=== PATIENT | female | born 1965 | race Caucasian/White ===

== ENCOUNTER → 2017-07-04 | Outpatient (CLI) | payer OTHER ==
--- NOTE | 2017-07-04 14:25 | MAMMOGRAPHY REPORT ---
BILATERAL DIGITAL DIAGNOSTIC MAMMOGRAM TOMOSYNTHESIS WITH CAD AND TARGETED BILATERAL ULTRASOUND: 07/04 CLINICAL HISTORY: 51-year-old woman presents with questionable palpable areas in each breast that she noticed during self breast exam. No skin erythema or nipple discharge. TECHNIQUE: Bilateral breast tomosynthesis in addition to standard 2D mammography was performed. Curr ent study was also evaluated with a Computer Aided Detection (CAD) system. COMPARISON: Comparison is made to exams dated: 07/28/2016, 03/10/2015, 03/06/2014, 03/01/2013, 02/28, 02/21/2011, 02/12/2010, 02/10/2009 mammograms. The tomosynthesis portion of the 2016 mammogra ms with unable to be viewed at this institution. BREAST COMPOSITION: The tissue of both breasts is extremely dense, which lowers the sensitivity of m ammography. FINDINGS: Regular skin palpable markers overlie the upper outer quadrant of each breast, denoting the areas of questionable palpable lumps pointed out by the patient. The parenchymal pattern of the gla ndular tissue is similar to prior exams. No suspicious mass, asymmetry architectural distortion or s uspicious microcalcifications is seen. Targeted ultrasound was performed in each breast in the areas of questionable lumps pointed out by th e patient, within the 1:00 and 2:00 axes of the left breast, 4 cm from the nipple, and 9:00, 10:00 an d 11:00 axes of the right breast, 5 cm from the nipple. On palpation, no discrete mass was identifie d that appeared to similar from the remainder of the dense glandular tissue. On ultrasound, sonograp hically normal dense glandular tissue is seen without a discrete solid or cystic mass. No focal skin thickening is appreciated on ultrasound. No drainable fluid collection. IMPRESSION: ACR BI-RADS CATEGORY 2: BENIGN, TARGETED ULTRASOUND ACR BI-RADS CATEGORY 2: BENIGN Stable bilateral mammograms. There is no mammographic or targeted sonographic evidence of malignancy in the breasts. Recommend bilateral screening tomosynthesis mammography in one year. Also recommen d continued clinical follow-up for the reported bilateral breast lumps, as biopsy of a clinically alf picious mass should not be precluded by negative imaging. These results and recommendations were discussed with the patient at the time of the exam. Approximately 10% of breast cancers are not detected with mammography. A negative mammographic report should not delay biopsy if a clinically suggestive mass is present. Jeanna Mcleod M.D. ay/:07/04/2017 12:36:26 Central Supply Assistant: Argenis Yu [facility] letter sent: Normal 1/2 BI-RADS Code: ACR BI-RADS Category 2: Benign Ultrasound BI-RADS: ACR BI-RADS Category 2: Benign
== END | disposition home or self-care (01) ==
LOC: C.MAMM 10:49
PROVIDERS: ATTEND Family Medicine
DX: N63.10 Unspecified lump in the right breast, unspecified quadrant (principal); N63.20 Unspecified lump in the left breast, unspecified quadrant

== ENCOUNTER → 2017-07-18 | Outpatient (CLI) | payer OTHER ==
[2017-07-18 12:07] LABS: BASO % 0.6 %; BASO ABS # 0.04 K/uL (0-0.2); COMPLETE YES; EOS % 1.5 %; HEMATOCRIT 39.2 % (37-47); IG% 0.2 %; LYMPH % 35.3 %; LYMPH ABS # 2.18 K/uL (1.2-3.4); MEAN CELL VOLUME 88.9 fL (80-100); MEAN CORPUSCULAR HEMOGLOBIN 29.7 pg (25-34); MEAN CORPUSCULAR HGB CONC 33.4 g/dl (32-36); MEAN PLATELET VOLUME 9.8 fL (7.4-10.4); MONO % 10.4 %; PLATELET COUNT 332 K/uL (130-400); RED BLOOD COUNT 4.41 M/uL (4.2-5.4); WHITE BLOOD COUNT 6.17 K/uL (4.8-10.8)
[2017-07-18 12:21] LABS: ALT/SGPT 23 U/L (12-78); AMYLASE 80 U/L (25-115); AST/SGOT 18 U/L (15-37); BLOOD UREA NITROGEN 10 mg/dl (7-18); BUN/CREATININE RATIO 12.3 (10-20); CALCIUM 8.9 mg/dl (8.5-10.1); CARBON DIOXIDE 26 mmol/L (21-32); CHLORIDE 103 mmol/L (98-107); CHOLESTEROL 196 mg/dl (0-200); CREATININE 0.83 mg/dl (0.60-1.20); GLUCOSE 85 mg/dl (70-99); POTASSIUM 4.5 mmol/L (3.5-5.1); SODIUM 136 mmol/L (136-145); TRIGLYCERIDES 98 mg/dl (0-150); VERY LOW DENSITY LIPOPROT CALC 20 mg/dl
[2017-07-18 12:26] LABS: ALB/GLOB RATIO 0.9 (0.9-2); ALKALINE PHOSPHATASE 48 U/L (45-117); CHOLESTEROL/HDL RATIO 3.4; HDL CHOLESTEROL 58 mg/dl; LDL CHOLESTEROL CALCULATED 118 mg/dl
== END | disposition home or self-care (01) ==
LOC: C.LAB 09:53
PROVIDERS: ATTEND Family Medicine
DX: I10 Essential (primary) hypertension (principal); R10.9 Unspecified abdominal pain; Z13.1 Encounter for screening for diabetes mellitus; Z13.220 Encounter for screening for lipoid disorders

== ENCOUNTER → 2017-07-18 | Outpatient (CLI) | payer OTHER ==
--- NOTE | 2017-07-18 10:06 | DIAGNOSTIC IMAGING REPORT ---
ABDOMEN COMPLETE (US) CLINICAL HISTORY: 51 years-old Female presenting with PELVIC PAIN,ABD PAIN, right lower and upper quadrant pain. TECHNIQUE: Real-time grayscale and limited color Doppler ultrasound imaging of the abdomen was performed. COMPARISON: None. FINDINGS: Pancreas: Visualized portions of the pancreatic head and body normal. Liver: Normal echogenicity and echotexture. No sonographic evidence of hepatic mass. Main portal vein patent with normal directional flow. Biliary: No intrahepatic biliary ductal dilatation. Common bile duct measures up to 4 mm in diameter. Gallbladder: No evidence of gallstones, gallbladder wall thickening, gallbladder distention, or pericholecystic fluid or inflammatory change. Spleen: Normal in echogenicity and size, measuring 7.8 cm in length. Kidneys: Normal in size and echogenicity. Right kidney measures 11.1 cm, and left kidney measures 11.5 cm. No hydronephrosis. Vasculature: Visualized portions of the IVC and abdominal aorta normal. Ascites: None. IMPRESSION: Normal abdominal ultrasound. Electronically signed by: Trent Hogan M.D. 07/18/2017 10:04 AM Dictated Date/Time: 07/18/2017 10:02 AM
--- NOTE | 2017-07-18 10:21 | DIAGNOSTIC IMAGING REPORT ---
PELVIC ULTRASOUND, TRANSABDOMINAL AND TRANSVAGINAL HISTORY: Pelvic pain. . COMPARISON: None. FINDINGS: Uterus: 10.2 x 4.7 x 6.7 cm. Multiple nabothian cysts are identified within the cervix. A 3.1 cm hypoechoic lesion within the left side of the uterus consistent with a fibroid. There is also a 2.7 cm hypoechoic mass abutting and displacing the fundus of the endometrium. Therefore, this also favors a fibroid demonstrating a submucosal component. Endometrial stripe: Trace fluid within the endometrium which measures up to 6 mm in thickness. Right ovary: Obscured by overlying bowel gas. Left ovary: Obscured by overlying bowel gas. Miscellaneous:No pelvic free fluid. IMPRESSION: 1. There are 2 similar-appearing masses within the uterus which appear to represent fibroids. The 2.7 cm lesion at the fundus abuts and displaces the endometrium and therefore favors a submucosal lesion. 2. The endometrium is slightly thickened for age but is likely due to the distortion from the mass effect from the adjacent fibroid. 3. Trace fluid within the endometrium. Electronically signed by: Kenneth Ledesma M.D. 07/18/2017 10:19 AM Dictated Date/Time: 07/18/2017 10:07 AM
== END | disposition home or self-care (01) ==
LOC: C.ULTR 08:50
PROVIDERS: ATTEND Family Medicine
DX: R10.2 Pelvic and perineal pain (principal)

== ENCOUNTER → 2017-08-23 | Outpatient (CLI) | payer OTHER | END | disposition home or self-care (01) | LOC: C.LABSPEC 13:26 | PROVIDERS: ATTEND Obstetrics & Gynecology | DX: B44.9 Aspergillosis, unspecified (principal) ==

== ENCOUNTER → 2017-09-08 | Outpatient (CLI) | payer OTHER ==
[2017-09-08 14:01] LABS: FOLLICLE STIMULAT HORMONE 0.32 IU/L
== END | disposition home or self-care (01) ==
LOC: C.LAB1850 11:27
PROVIDERS: ATTEND Obstetrics & Gynecology
DX: B44.9 Aspergillosis, unspecified (principal)

== ENCOUNTER → 2017-10-25 | Outpatient (CLI) | payer OTHER | END | disposition home or self-care (01) | LOC: C.PATHSPEC 18:00 | PROVIDERS: ATTEND Obstetrics & Gynecology | DX: A63.0 Anogenital (venereal) warts (principal); N87.0 Mild cervical dysplasia ==

== ENCOUNTER → 2017-11-28 | Outpatient (CLI) | payer OTHER ==
[2017-11-28 12:15] LABS: HEMATOCRIT 39.3 % (37-47); HEMOGLOBIN 13.4 g/dL (12.0-16.0); MEAN CELL VOLUME 87.5 fL (80-100); MEAN CORPUSCULAR HEMOGLOBIN 29.8 pg (25-34); MEAN CORPUSCULAR HGB CONC 34.1 g/dl (32-36); MEAN PLATELET VOLUME 9.2 fL (7.4-10.4); PLATELET COUNT 291 K/uL (130-400); RED CELL DISTRIBUTION WIDTH CV 14.7 % (11.5-14.5); RED CELL DISTRIBUTION WIDTH SD 46.8 fL (36.4-46.3); WHITE BLOOD COUNT 8.53 K/uL (4.8-10.8)
== END | disposition home or self-care (01) ==
LOC: C.LAB1850 11:20
PROVIDERS: ATTEND Obstetrics & Gynecology
DX: N92.0 Excessive and frequent menstruation with regular cycle (principal)

== ENCOUNTER → 2018-02-27 | Outpatient (CLI) | payer OTHER | END | disposition home or self-care (01) | LOC: C.LAB 10:07 | PROVIDERS: ATTEND Physician Assistant | DX: R10.11 Right upper quadrant pain (principal) ==

== ENCOUNTER → 2018-03-06 | Outpatient (CLI) | payer OTHER ==
[~2018-03-06] MED LIST: SINCALIDE IV SCH; SODIUM CHLORIDE 0.9% IV SCH
--- NOTE | 2018-03-06 10:49 | DIAGNOSTIC IMAGING REPORT ---
HEPATOBILIARY EF IMAGING HISTORY: Pain. Nausea. R10.11 Abdominal pain, acute, right upper [id number] COMPARISON: None. TECHNIQUE: Immediately following the intravenous administration of 5.4 mCi Tc-99m Choletec, dynamic anterior abdominal imaging pre/post 1.22 mcg of Kinevac was performed. FINDINGS: Uniform hepatic tracer accumulation is shown. Prompt intrahepatic biliary excretion is seen. The gallbladder, common bile duct, and small bowel are all visualized by 30 minutes. This appearance represents the normal sequence of biliary excretion. The gallbladder ejection fraction following administration of Kinevac was 82 % (normal >35%). IMPRESSION: 1. No evidence for cystic duct obstruction. 2. Gallbladder ejection fraction calculated to be 82 %. The above report was generated using voice recognition software. It may contain grammatical, syntax or spelling errors. Electronically signed by: Howard Malloy M.D. 03/06/2018 10:48 AM Dictated Date/Time: 03/06/2018 10:46 AM
== END | disposition home or self-care (01) ==
LOC: C.NUCL 07:34
PROVIDERS: ATTEND Physician Assistant
DX: R10.11 Right upper quadrant pain (principal)

== ENCOUNTER 2018-09-24 05:25 | Observation (INO) ==
--- NOTE | 2018-09-06 12:33 | Anesthesiology Consultation ---
Date of Service September 06, 2018 Assessment & Plan (1) Encounter for pre-operative examination: Chart Review Chart Review: Acceptable Risk for Surgery and Patient seen in Pre Admission Testing Teaching & Discussion Instructed NPO after midnight before surgery, except medications with 15 cc of water. Medication instructions provided according to the PAT guidelines. History Surgery Operation Date: 09/24/18 07:30 Proposed Procedures p Robotic Total Laparoscopic Hysterectomy - Tara Lance MD, FACOG Height/Weight Height: 5 ft 8 in Weight: 58.8 kg Allergies Allergy/AdvReac Type Severity Reaction Status Date / Time Sulfa (Sulfonamide Allergy Unknown BACTRIM-RASH Verified 08/30/18 10:13 Antibiotics) AFTER IN THE SUN bee venom protein (honey bee) AdvReac localized Verified 09/06/18 12:32 swelling Medications Home Medications Medication Instructions Recorded Confirmed Last Taken Losartan 12.5 mg PO QAM 08/30/18 09/06/18 Unknown amlodipine 10 mg PO QAM 08/30/18 08/30/18 Unknown escitalopram oxalate 10 mg PO DAILY PRN 08/30/18 08/30/18 Unknown hydroxyzine HCl 10 mg PO Q6H PRN 08/30/18 08/30/18 Unknown norethindrone-e.estradiol-iron [Lo 1 tab PO QPM 09/06/18 09/06/18 Unknown Loestrin Fe] Past Medical History Medical History Anxiety Hypertension Menorrhagia Past Surgical History Surgical History History of colonoscopy History of tooth extraction WISDOM TEETH Past Anesthesia History No Hx of Anesthesia Complications and No Family Hx of Anesthesia Complications History of PONV No Motion Sickness Screening History of Motion Sickness: No Social History Smoking Status: Never smoker Do You Dip or Chew Tobacco: No Hx Alcohol Use: Yes Alcohol type: wine and hard liquor alcohol intake frequency: 0-2 drinks per day (2 glasses of wine) Hx Substance Use: No Exercise / Class Metabolic Activity 1 > 8 Run/Swim/Ski/Tennis Review of Systems Pt denies any recent chest pain, shortness of breath, palpitations, cough, fever or URI. Physical Exam Vital Signs BP: 138/85 P: 78bpm SPO2: 99% RA T: 97.9 F R: 16 ENMT Mouth: + dental restorations (few crowns); no chipped teeth and no loose teeth Thyromental Distance: < 3.5 Finger Breadths (3) Mallampati Class: I Neck normal visual inspection; neck extension not limited Respiratory normal respiratory effort Auscultation: lungs clear to auscultation bilaterally Cardiovascular Rate/Rhythm: regular rate and regular rhythm Heart Sounds: no murmur Vessels: no carotid bruit Testing Electrocardiogram Date: 09/06/18 Findings: + NSR @ (67) Laboratory Results 09/06/18 12:58 09/06/18 12:58 Blood Type O Positive 09/06/18 12:58 Antibody Screen NEGATIVE 09/06/18 12:58
--- NOTE | 2018-09-06 12:48 | PAT Medication Instructions ---
Medication Instructions Date of Service September 06, 2018 Home Medications Losartan 12.5 mg PO QAM amlodipine 10 mg PO QAM escitalopram oxalate 10 mg PO DAILY PRN hydroxyzine HCl 10 mg PO Q6H PRN norethindrone-e.estradiol-iron [Lo Loestrin Fe] 1 tab PO QPM DO NOT take the morning of surgery Losartan 12.5 mg PO QAM hydroxyzine HCl 10 mg PO Q6H PRN Take morning of surgery With a small sip of water, OTHERWISE NOTHING TO EAT OR DRINK AFTER MIDNIGHT: amlodipine 10 mg PO QAM escitalopram oxalate 10 mg PO DAILY PRN (if needed) Take evening before surgery hydroxyzine HCl 10 mg PO Q6H PRN (if needed) norethindrone-e.estradiol-iron [Lo Loestrin Fe] 1 tab PO QPM Other Notes If you have any questions please call us at [phone] or [phone] or [phone] or [phone]
[2018-09-06 14:28] LABS: Basophils # (auto) 0.06 K/uL (0-0.2); Basophils % (auto) 1.1 %; Eosinophils # (auto) 0.05 K/uL (0-0.5); Eosinophils % (auto) 0.9 %; Hematocrit (blood only) 41.7 % (37-47); Hemoglobin 14.6 g/dL (12.0-16.0); Immature Granulocytes # (auto) 0.02 K/uL (0.00-0.02); Immature Granulocytes % (auto) 0.4 %; Lymphocytes # (auto) 1.78 K/uL (1.2-3.4); Mean Corpuscular Volume 92.1 fL (80-100); Mean Platelet Volume 9.2 fL (7.4-10.4); Monocytes # (auto) 0.57 K/uL (0.11-0.59); Monocytes % (auto) 10.3 %; Neutrophils # (auto) 3.08 K/uL (1.4-6.5); Neutrophils % (auto) 55.3 %; Platelet Count 300 K/uL (130-400); RDW Coefficient of Variation 13.5 % (11.5-14.5); RDW Standard Deviation 45.4 fL (36.4-46.3); Red Blood Count 4.53 M/uL (4.2-5.4); White Blood Count 5.56 K/uL (4.8-10.8)
[2018-09-06 14:29] LABS: BUN Creatinine Ratio 12.6 (10-20); Calcium 8.8 mg/dl (8.5-10.1); Creatinine Clr Calc Pharmacy 67.8 ml/min; Est GFR (African American) 86.3; Est GFR (Non-African American) 74.5; Potassium 4.8 mmol/L (3.5-5.1)
[2018-09-24] MEDS ORDERED: LR 15ML/HR IV SCH (06:00)
[2018-09-24] MEDS ORDERED: LACTATED RINGER'S 1,000 ML IV SCH ×2 (06:00→14:00)
[2018-09-24] MEDS ORDERED: CEFAZOLIN 2000MG 2,000 MG/15 ML SYR IV SCH (06:00)
[2018-09-24] MEDS ORDERED: ROCURONIUM BROMIDE 10 MG/ML 5 ML VIAL ONE ×2 (07:00→08:19)
[2018-09-24] MEDS ORDERED: PROPOFOL IV EMULSION 10 MG/ML 20 ML VIAL IV ONE (07:00)
[2018-09-24] MEDS ORDERED: DEXAMETHASONE SOD INJ 4 MG/ML VIAL ONE (07:00)
[2018-09-24] MEDS ORDERED: LIDOCAINE HCL 2% 2 ML VIAL/AMP(20MG/ML) INFIL ONE (07:00)
[2018-09-24] MEDS ORDERED: ONDANSETRON INJ 2 MG/ML 2 ML VIAL ONE ×2 (07:00→09:46)
[2018-09-24] MEDS ORDERED: fentaNYL citrate 100 MCG/2 ML VIAL ONE (07:01)
[2018-09-24] MEDS ORDERED: HYDROmorphone INJ 2 MG/ML SYR/VIAL ONE (07:01)
[2018-09-24] MEDS ORDERED: MIDAZOLAM HCL 1 MG/ML 2ML VIAL ONE (07:01)
[2018-09-24] MEDS ORDERED: ACETAMINOPHEN 1000 MG/100 ML IV IV ONE (07:21)
--- NOTE | 2018-09-24 07:21 | History & Physical Bridge Note ---
Date of Service September 24, 2018 History & Physical Bridge Note I have examined the patient, reviewed the History & Physical and in the interval since the performance of the History & Physical I have noted the following changes of clinical significance: no changes noted
[2018-09-24] MEDS ORDERED: METHYLENE BLUE 0.5% 10 ML VIAL ONE (07:25)
[2018-09-24] MEDS ORDERED: BUPIVACAINE 0.5 % 5 MG/1 ML MPF 30ML VIAL ONE (07:25)
[2018-09-24] MEDS ORDERED: FLUMAZENIL 0.1 MG/1 ML 10 ML VIAL IV PRN (08:07)
[2018-09-24] MEDS ORDERED: ePHEDrine sulfate 50 MG/ML AMP IV PRN (08:07)
[2018-09-24] MEDS ORDERED: NALOXONE HCL 0.4 MG/1 ML VIAL/CARP IV PRN (08:07)
[2018-09-24] MEDS ORDERED: PROMETHAZINE HCL 12.5 MG in SODIUM CHLORIDE 0.9% 50 ML IV PRN (08:07)
[2018-09-24] MEDS ORDERED: ATROPINE SULFATE 0.1 MG/ML 10ML SYR IV PRN (08:07)
[2018-09-24] MEDS ORDERED: ONDANSETRON INJ 2 MG/ML 2 ML VIAL IV PRN (08:07)
[2018-09-24] MEDS ORDERED: HYDROmorphone INJ 1 MG/ML SYRINGE IV PRN (08:07)
[2018-09-24] MEDS ORDERED: LABETALOL HCL IV 5 MG/ML 20ML IV PRN (08:07)
[2018-09-24] MEDS ORDERED: NEOSTIGMINE METHYLSULFATE 5 MG/5 ML SYR ONE (08:58)
[2018-09-24] MEDS ORDERED: GLYCOPYRROLATE 0.2 MG/ML VIAL ONE (08:58)
--- NOTE | 2018-09-24 09:12 | Post Operative Brief Note ---
Immediate Post Op Note v1 Date of Surgery September 24, 2018 Pre & Post Diagnosis Operation Date: 09/24/18 07:30 Pre-Op Diagnosis: Menorrhagia, Submucous Leiomyoma of Uterus Post-Op Diagnosis: Menorrhagia, Submucous Leiomyoma of Uterus Procedure Operation Date: 09/24/18 07:30 Actual Procedures p Robotic Total Laparoscopic Hysterectomy, Bilateral salpingectomy with use of Davinci, cystoscopy - Tara Lance MD, FACOG Surgeon Tara Lance MD, FACOG Supervisor [employer] Dr. Tai Major Estimated Blood Loss 50 Findings Consistent with Post-Op Diagnosis Drains Quinonez Catheter
[2018-09-24] MEDS ORDERED: IBUPROFEN 600 MG TAB PO PRN (09:13)
[2018-09-24] MEDS ORDERED: MEPERIDINE HCL 50 MG/ML CARP IV PRN (09:13)
[2018-09-24] MEDS ORDERED: OXYCODONE/ACETAMINOPHEN 5mg/325mg TAB PO PRN ×2 (09:13)
[2018-09-24] MEDS ORDERED: KETOROLAC 30 MG/ML VIAL IV PRN (09:13)
[2018-09-24] MEDS ORDERED: SIMETHICONE 80 MG CHEW PO PRN (09:13)
[2018-09-24] MEDS ORDERED: ACETAMINOPHEN 325 MG TAB PO PRN (09:13)
[2018-09-24] MEDS ORDERED: MEPERIDINE HCL 25 MG/ML CARP IV PRN (09:13)
--- NOTE | 2018-09-24 10:21 | Operative Report ---
DATE OF OPERATION: 09/24/2018 PREOPERATIVE DIAGNOSES: 1. Menorrhagia. 2. Submucous and subserosal fibroids. POSTOPERATIVE DIAGNOSES: 1. Menorrhagia. 2. Submucous and subserosal fibroids. PROCEDURES: 1. Total laparoscopic hysterectomy with bilateral salpingectomy via da Jad assist. 2. Cystoscopy. SURGEON: Tara Lance MD THERAPEUTIC DIETITIAN: Annabelle Major MD ANESTHESIA: General per endotracheal tube. ESTIMATED BLOOD LOSS: 50 mL. FLUIDS: 1200 mL. URINE OUTPUT: 600 mL clear yellow urine drained from the Quinonez catheter prior to cystoscopy. INDICATIONS: Elizabeth is a 52-year-old white female with hypertension who continues to have menorrhagia. She now has a contraindication to remaining on oral contraceptive pills. She has a submucous fibroid for which she declines a hysteroscopic resection, desires definitive surgical therapy. FINDINGS: Both ovaries were somewhat streak like, but were otherwise normal. Tubes were normal bilaterally. Uterus showed subserosal fibroids, particularly in the left lower fundal region. Liver edge and upper abdomen appeared normal. COMPLICATIONS: None. DRAINS: None. DISPOSITION: To recovery room in stable condition. DESCRIPTION OF PROCEDURE: The patient was taken to the operating room where she was identified verbally and by bracelet. She was placed in dorsal supine position where general anesthesia was induced without difficulty. She was then placed in dorsal lithotomy position in [facility]. She was prepped and draped in normal sterile fashion. Timeout was held, identifying correct patient, procedure, positioning, and preoperative antibiotics. There were no concerns. Attention was turned to the vagina where a speculum was placed in the anterior vagina. Quinonez catheter was placed. The anterior lip of the cervix was grasped with a single tooth tenaculum. Unfortunately, we were unable to cannulate pass the internal os sounding to approximately 4 cm. A stitch was placed at 9 o'clock. The VCare manipulator was placed into the cervix. The cup was placed against to the cervix. The speculum was removed, gloves were then changed. Attention was turned to the abdomen where a supraumbilical incision approximately 2 fingerbreadths above the umbilicus was made with a knife. A Veress needle was placed through this opening pressure 2 mmHg. Abdomen was insufflated with 2.5 liters of carbon dioxide gas. A 12 mm trocar was placed through this via direct visualization. The patient was placed into steep Trendelenburg and then under direct visualization, two 8 mm da Jad trocars were placed in the left and right lower quadrants and a 10-mm accessory trocar in the left upper quadrant. The da Jad operating room surgical technologist device was then hooked to the patient and the loop machine operator proceeded to the console. First on the right and then on the left, the tubes were excised using hot alfonso and passed up through the accessory trocar. The tubo-ovarian ligaments and round ligaments were then entered, being careful to be aware of where the ureter was which was far from our surgical field. The patient desired ovarian preservation. We went through these ligaments with cautery and hot alfonso. The uterine arteries were then skeletonized. The bladder flap was created anteriorly, sharply with scissors. The uterine artery on the right was then coagulated and cut. Attention was then turned to the left where in a similar fashion, the tube was removed. The tubo-ovarian and round ligaments were cauterized and cut. The uterine artery was skeletonized being careful to observe that we were free from the ureter. The bladder flap was created anteriorly using sharp scissors. The bladder was pushed down using the catheter source of reference. The uterine artery was then cut and coagulated. Then, a colpotomy incision was made in 365 degrees starting posteriorly and making her way around anteriorly. Once the specimen was disconnected from the vaginal cuff, it was removed atraumatically through the vagina. A 2-0 V-Loc suture was then placed through the accessory trocar and using a needle driver license agent, the cuff was then reapproximated with the 2-0 V-Loc suture. Hemostasis was noted to be excellent at the end of the procedure. Attention was then turned to cystoscopy where 70-degree scope was placed into the bladder. The bladder dome and dial were clear and the ureters were both observed and found to be peristalsing blue urine from the methylene blue that have been given to the patient. The cystoscopy was ended. All of the water was drained from the bladder. Attention was then turned to the abdomen where the da Jad operating room surgical technologist device was removed from the patient. The gas was released. All trocars were removed. The supraumbilical incision fascia was reapproximated with [id number] suture of 0 Vicryl. All incisions were then closed with 4-0 Vicryl in subcuticular fashion. All incisions were infiltrated with 0.5% Marcaine and treated with Dermabond. All sponge, lap and needle counts were correct x2. The patient tolerated the procedure well and was taken to the recovery room in stable condition. I attest to the content of the Intraoperative Record and any orders documented therein. Any exception s are noted below.
--- NOTE | 2018-09-24 10:23 | Anesthesiology Progress Note ---
Date of Service September 24, 2018 Anesthesia Post Procedure Vital Signs Vital Signs: Temp Pulse Pulse Resp BP Pulse Ox 09/24/18 10:15 65 15 141/79 H 100 09/24/18 10:05 69 19 147/81 H 100 09/24/18 09:55 64 19 124/67 99 09/24/18 09:45 64 26 H 127/78 100 09/24/18 09:35 57 L 15 133/78 100 09/24/18 09:25 36.0 C L 62 20 125/75 100 09/24/18 06:05 36.8 C 85 18 100 Pain Intensity Lower Abdomen: Pain Intensity: 4 Notes Mental Status: alert / awake / arousable Patient Amnestic to Procedure: Yes Nausea / Vomiting: adequately controlled Pain: adequately controlled Airway Patency, RR, SpO2: stable & adequate BP & HR: stable & adequate Hydration State: stable & adequate Anesthetic Complications: no major complications apparent
--- NOTE | 2018-09-25 06:45 | Discharge Summary ---
ADMIT DIAGNOSES: Menorrhagia with submucosal fibroid. DISCHARGE DIAGNOSES: Menorrhagia with submucosal fibroid. PROCEDURES: Total laparoscopic hysterectomy with bilateral salpingectomies via da Jad assist and cystoscopy. HISTORY OF PRESENT ILLNESS: The patient is a 52-year-old 0 who has chronic hypertension requiring antihypertensives. Since this diagnosis, her control pills are contraindicated. She has a large submucosal fibroid and is on the pills for menstrual bleeding control. She has desired definitive surgical therapy. For the rest of patient's detailed history and physical, please see her written history and physical. ASSESSMENT: This is a 52-year-old white female with submucosal fibroid and history of menorrhagia. HOSPITAL COURSE: The patient was admitted and underwent a total laparoscopic hysterectomy and bilateral salpingectomy via da Jad assist. She tolerated this procedure well. Estimated blood loss was 50 mL. The patient's postoperative course was uncomplicated. She tolerated solid food, was able to take oral pain medications, ambulated without difficulty and was able to void. She was discharged home on postoperative day #0 with this prescription for 10 Percocet and to take [id number] ibuprofen for pain. She has a followup appointment in 2 weeks and will call with any problems.
== END 2018-09-24 19:15 | disposition home or self-care (01) ==
LOC: ASU 05:25 → 4N 05:25